=== PATIENT | male | born 1965 | race Caucasian/White ===

== ENCOUNTER 2016-10-04 06:29 | Day surgery (SDC) | payer BC ==
[~2016-10-04] VITALS: Ht 182.9 cm; Wt 165.0 kg
[2016-10-04 08:03] VITALS: BP 148/83
[2016-10-04] MEDS ORDERED: LEVO125T5 PO (08:10)
[2016-10-04] MEDS ORDERED: VALS1TAB30 PO (08:10)
[2016-10-04] MEDS ORDERED: AMLO5TAB2 PO (08:17)
[2016-10-04] MEDS ORDERED: PROPOFOL 10 MG/ML, 20ML ONE (08:56)
== END 2016-10-04 10:45 ==
LOC: OUT 06:29
PROVIDERS: ATTEND Specialist
DX: Z12.11 Encounter for screening for malignant neoplasm of colon (principal); K63.5 Polyp of colon; K57.30 Diverticulosis of large intestine without perforation or abscess without bleeding; I10 Essential (primary) hypertension; E03.9 Hypothyroidism, unspecified; E66.01 Morbid (severe) obesity due to excess calories; Z68.43 Body mass index [BMI] 50.0-59.9, adult; Z80.0 Family history of malignant neoplasm of digestive organs
CPT/HCPCS: 45380; 88305; J2704